=== PATIENT | female | born 1985 | race Asian ===

== ENCOUNTER → 2017-05-31 | Outpatient (CLI) | payer OTHER ==
--- NOTE | 2017-05-31 14:04 | MAMMOGRAPHY REPORT ---
UNILATERAL RIGHT DIGITAL DIAGNOSTIC MAMMOGRAM TOMOSYNTHESIS WITH CAD AND TARGETED RIGHT ULTRASOUND: CLINICAL HISTORY: Patient reports she is not able to feel the lump herself reports breast tenderness before her period. No nipple discharge. No family history of breast cancer. TECHNIQUE: Right breast tomosynthesis in addition to standard 2D mammography was performed. Current randi simmons was also evaluated with a Computer Aided Detection (CAD) system. COMPARISON: No prior exams were available for comparison. BREAST COMPOSITION: The tissue of the right breast is extremely dense, which lowers the sensitivity of mammography. FINDINGS: A triangular palpable marker overlies the 7:00 right breast, denoting the area of lump poi nted out by the patient. There are diffuse benign-appearing round and punctate microcalcifications t hroughout the right breast. In the inferior posterior right breast on the MLO view, there is slight nodularity posterior to the triangle marker, measuring approximately 6 mm. Further characterization with ultrasound was performed. No areas of architectural distortion, other obvious mass or suspiciou s microcalcifications identified. Targeted ultrasound was performed in the area of lump described by the patient, throughout the 7:00 a xes of the right breast. In the 7:00 right breast, 4 cm from the nipple, there is a parallel, partia lly circumscribed hypoechoic solid mass. Not all of the borders are completely circumscribed, partic ularly the lateral and medial border. This mass measures approximately 10.6 x 5.0 x 13.2 mm. Althou gh it most likely represents a benign fibroadenoma, definitive characterization with an ultrasound-gu ided core biopsy is recommended. This is palpable on exam and likely correlates with what the patien t's provider was feeling. IMPRESSION: ACR BI-RADS CATEGORY 4: SUSPICIOUS, TARGETED ULTRASOUND ACR BI-RADS CATEGORY 4: SUSPICIO US 1. Ultrasound-guided core biopsy is recommended for a solid palpable 13.2 mm mass in the 7:00 right breast, 4 cm from the nipple. These results and recommendations were discussed with the patient at the time of the exam. She tenta tively scheduled the right breast biopsy prior to leaving our department. Approximately 10% of breast cancers are not detected with mammography. A negative mammographic report should not delay biopsy if a clinically suggestive mass is present. Taylro Ledesma M.D. ay/:05/31/2017 12:49:50 Head Piece Assembler: Angel Hernandez RT(R)(M), [facility] letter sent: Abnormal 4/5 BI-RADS Code: ACR BI-RADS Category 4: Suspicious Ultrasound BI-RADS: ACR BI-RADS Category 4: Suspici ous
== END | disposition home or self-care (01) ==
LOC: C.MAMM 10:00
PROVIDERS: ATTEND Nurse Practitioner Women's Health
DX: N63.13 Unspecified lump in the right breast, lower outer quadrant (principal)

== ENCOUNTER → 2017-06-06 | Outpatient (CLI) | payer OTHER ==
--- NOTE | 2017-06-06 08:37 | Discharge Instructions ---
Discharge Instructions Procedure Procedure Date: Jun 06, 2017. Reason for visit: Right Mass. Discharge Discharge Date: Jun 06, 2017. Discharge Diagnosis: post right breast ultrasound guided core biopsy Instructions Activity Recommendations: Additional Limitations (see below) Return to School/Work: no limitations Recommended Home Diet: No Limitations Provider Instructions: ACTIVITY RECOMMENDATIONS: * No lifting, pushing, pulling or exercising the affected side for three days. RETURN TO SCHOOL/WORK: * You may return to work/school after the procedure, but do not perform any strenuous activities for 24 to 48 hours. MEDICATIONS: * Tylenol (two 325 mg) every four to six hours if needed for mild pain (if not allergic to Tylenol). DIET: * Resume previous diet. SPECIAL CARE INSTRUCTIONS: * Keep biopsy site dry for 24 hours. May shower after 24 hours, but do not soak (bathe) incision. * May remove Tegaderm (plastic patch) tomorrow AFTER showering. * Leave the steri-strips on for one week. Allow the steri-strips to fall off by themselves. If not off after one week, you may remove them. You may place a Bandaid crosswise over the strips, if desired. * Apply ice 10 minutes on and 10 minutes off as needed. * Wear a bra at bedtime to sleep more comfortably for 2-3 days. * Your referring physician should have the results after approximately 5 to 7 business days. * Call for unusual bleeding, fever, drainage, etc or if you have any questions call [phone] during normal business hours or after hours call Dr Ledesma, . FOLLOW UP VISIT: Follow-up with Referring Physician as scheduled. Naye Parker Recommendations: Call your doctor if: * Temperature above 101 degrees * Pain not relieved by pain medicine ordered * There is increased drainage or redness from any incision * You have any unanswered questions or concerns. Your Doctors Instructions noted above were prepared by provider Taylor Ledesma. Patient Signature Section: Patient Instructions Signature Page Scott Campbell Patient (or Guardian) Signature/Date: I have read and understand the instructions given to me by my caregivers. Caregiver/RN/Doctor Signature/Date: The above-named patient and/or guardian has received patient instructions on this date. + Original Patient Signature Page (only) stays with chart. Please make copy for patient.
--- NOTE | 2017-06-06 15:53 | MAMMOGRAPHY REPORT ---
ULTRASOUND GUIDED BIOPSY RIGHT BREAST: 06/06/2017 CLINICAL HISTORY: 32-year-old woman presents for biopsy of a solid 13.2 mm mass in the 7:00 right joan ast, initially identified by her physician on physical exam. COMPARISON: Comparison is made to exams dated: 05/31/2017 ultrasound and 05/31/2017 mammogram - [facility]. PATIENT CONSENT: The procedure, risks and benefits were discussed with the patient and informed conse nt was obtained both verbally and in writing. Specific risks to this procedure include: bleeding, in fection, puncture of adjacent structure, nontarget biopsy, sampling error, pain, metal allergy and me dication reaction. PROCEDURE DESCRIPTION: A time out was performed and the right breast was agreed as the site of biopsy . The skin was prepped and draped in the usual sterile fashion. The 13.2 mm solid mass in the 7:00 ri ght breast was chosen as the target for biopsy. Subcutaneous and intraparenchymal 1% buffered lidocai ne, with and without epinephrine, was administered as local anesthesia. A skin incision was made. Th rough the incision, 4 samples were taken with a 14 gauge Achieve biopsy device. A ribbon shaped metal lic marker was placed at the biopsy site. Hemostasis was achieved after manual compression. The patie nt tolerated the procedure well and there was no immediate complication. The samples were sent to [facility] pathology department in an appropriately labeled container. Postprocedure right CC and ML tomosynthesis images demonstrate a new ribbon-shaped metallic biopsy ma rker in the 7:00 middle one third of the right breast. No significant postbiopsy hematoma identified . There are diffuse punctate and round microcalcifications. IMPRESSION: ULTRASOUND GUIDED BIOPSY Status post ultrasound guided core biopsy of a solid palpable 13.2 mm mass in the 7:00 right breast, with ribbon-shaped biopsy marker clip placed at the site. The patient will receive notification of the biopsy results from her referring physician. Taylor Ledesma M.D. ay/:06/06/2017 09:23:01 Iso Coordinator: Janice DAVENPORT(Alda)(Roxanne), [facility]
--- NOTE | 2017-06-06 15:57 | MAMMOGRAPHY REPORT ---
UNILATERAL RIGHT DIGITAL DIAGNOSTIC MAMMOGRAM TOMOSYNTHESIS: 06/06/2017 CLINICAL HISTORY: Status post ultrasound guided core biopsy of a solid, palpable 13.2 mm mass in the 7:00 right breast. Please refer to the report from right breast ultrasound-guided core biopsy performed at the same time for full detail. IMPRESSION: POST PROCEDURE IMAGING FOR MARKER PLACEMENT Please refer to the report from right breast ultrasound-guided core biopsy performed at the same time for full detail. Approximately 10% of breast cancers are not detected with mammography. A negative mammographic report should not delay biopsy if a clinically suggestive mass is present. Taylor Ledesma M.D. ay/:06/06/2017 08:36:28 Cell Stripper: Janice HEBERT)(M), [facility] BI-RADS Code: Post Procedure Imaging For Marker Placement
== END | disposition home or self-care (01) ==
LOC: C.MAMM 08:07
PROVIDERS: ATTEND Nurse Practitioner Women's Health
DX: D24.1 Benign neoplasm of right breast (principal)